=== PATIENT | male | born 1940 | race Caucasian/White ===

== ENCOUNTER → 2016-06-07 | Outpatient (CLI) | payer OTHER ==
[~2016-06-07] MED LIST: CYAN100T PO; GLIP5TAB11 PO; HYT1 PO; METF1000 PO; NXM/40 PO; SIMV40TA4 PO
== END | disposition home or self-care (01) ==
LOC: C.PATHSPEC 14:21
PROVIDERS: ATTEND Dermatology
DX: L82.1 Other seborrheic keratosis (principal)